=== PATIENT | female | born 1990 | race Caucasian/White ===

== ENCOUNTER 2016-10-02 07:13 | Emergency (ER) | payer OTHER ==
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
[~2016-10-02 07:13] MED LIST: ACYCLOVIR PO; BACTRIM DS TABL1 TA1 PO; CLEOCIN; CLINDAMYCIN HC300 MG PO; DICLOFENAC; DOXYCYCLINE PO; FLAGYL PO; FLEXERIL10 MG PO; IBUPROFEN800 MG PO; MACROBID100 MG; METRONIDAZOLE; MONISTAT 1 COM1 EACH; NO MEDICATIONS; ORUDIS75 M1 PO; PRENATAL1 TA1 PO; RONDEC DM PO; TYLENOL #3 PO; ULTRAM PO; VOLTAREN75 MG PO; ZITHROMAX PO; ZOVIRAX400 MG PO; ZOVIRAX800 MG PO
== END 2016-10-02 08:45 | disposition home or self-care (01) ==
LOC: SED 07:13
DX: S62.303A Unspecified fracture of third metacarpal bone, left hand, initial encounter for closed fracture (principal); F17.210 Nicotine dependence, cigarettes, uncomplicated; W23.0XXA Caught, crushed, jammed, or pinched between moving objects, initial encounter; Z88.0 Allergy status to penicillin
CPT/HCPCS: 29125; 73130; 99283

== ENCOUNTER 2016-11-06 21:13 | Emergency (ER) | payer OTHER ==
[2016-11-06] MEDS ORDERED: NO MEDICATIONS (21:31)
== END 2016-11-06 22:31 | disposition home or self-care (01) ==
LOC: SED 21:13
DX: J02.9 Acute pharyngitis, unspecified (principal); F17.210 Nicotine dependence, cigarettes, uncomplicated; Z88.1 Allergy status to other antibiotic agents
CPT/HCPCS: 87651; 99283